=== PATIENT | female | born 1975 | race Caucasian/White ===

== ENCOUNTER 2016-12-16 08:56 | Emergency (ER) | payer SELFPAY ==
[~2016-12-16] VITALS: Ht 152.4 cm; Wt 121.2 kg
[2016-12-16 09:21] VITALS: BP 136/83
== END 2016-12-16 11:48 | disposition home or self-care (01) ==
LOC: ED 08:56
DX: S82.64XA Nondisplaced fracture of lateral malleolus of right fibula, initial encounter for closed fracture (principal); E66.01 Morbid (severe) obesity due to excess calories; W01.0XXA Fall on same level from slipping, tripping and stumbling without subsequent striking against object, initial encounter; Y93.89 Activity, other specified; Y99.8 Other external cause status; Y92.000 Kitchen of unspecified non-institutional (private) residence as the place of occurrence of the external cause